=== PATIENT | female | born 1980 | race Caucasian/White ===

== ENCOUNTER 2017-03-07 23:30 | Emergency (ER) | payer BC ==
[2017-03-07 23:36] VITALS: BP 123/83; PULSE 78; TEMP 98.2; BMI 22.6
[2017-03-08] MEDS ORDERED: LIDOCAINE HCL 2% (20ML MULTI-DOSE VIAL) NR ONE (00:13)
--- NOTE | 2017-03-08 00:31 | PDOC ---
History of Present Illness - History of Present Illness Initial Comments: 03/08/17 00:32 Patient is a 36 year old female with significant medical hx of fibrocystic breast disease who is presenting to the ED with a head laceration s/p fall from last night. 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 The patient hit both sides of her head, sustaining a laceration to the right scalp and a bump to the left. She endorses significant blood loss from the wound. Patient denies any LOC, dizziness, nausea , or vomiting. Today the patient noticed that her laceration kept reopening up and decided to come to the ED for further evaluation. <Keyona Alvarez - Last Filed: 03/08/17 00:32> <Nissa Dunn - Last Filed: 03/08/17 01:26> - General Chief Complaint: Injury Stated Complaint: INJURY Time Seen by Provider: 03/08/17 00:02 Past History <Keyona Alvarez - Last Filed: 03/08/17 00:32> - Past Medical History Cardiac Disorders: No CVA: No CHF: No Dementia: No Diabetes: No GI Disorders: No Disorders: No HTN: No Hypercholesterolemia: No Liver Disease: No Seizures: No Thyroid Disease: No - Immunization History Immunization Up to Date: Yes - Psycho/Social/Smoking Cessation Hx Anxiety: No Suicidal Ideation: No Smoking Status: No Smoking History: Never smoked Have you smoked in the past 12 months: No Number of Cigarettes Smoked Daily: 0 Hx Alcohol Use: Yes (drinks approx. 1/2 bottle vodka/day) Drug/Substance Use Hx: No Substance Use Type: Alcohol Hx Substance Use Treatment: No <Nissa Dunn - Last Filed: 03/08/17 01:26> - Past Medical History Allergies/Adverse Reactions: Allergies Allergy/AdvReac Type Severity Reaction Status Date / Time No Known Drug Allergies Allergy Verified 03/07/17 23:36 Home Medications: Ambulatory Orders Acetaminophen [Tylenol] 650 mg PO Q4H #0 tablet 04/04/13 Review of Systems - Review of Systems Comments:: 03/08/17 00:33 CONSTITUTIONAL: Absent: fever, chills, diaphoresis, generalized weakness, malaise, loss of appetite HEENT: Present: bump to left scalp Absent: rhinorrhea, nasal congestion, throat pain, throat swelling, difficulty swallowing, mouth swelling, ear pain, eye pain, visual changes CARDIOVASCULAR: Absent: chest pain, syncope, palpitations, irregular heart rate, lightheadedness , peripheral edema RESPIRATORY: Absent: cough, shortness of breath, dyspnea with exertion, orthopnea, wheezing, stridor, hemoptysis GASTROINTESTINAL: Absent: abdominal pain, abdominal distension, nausea, vomiting, diarrhea, constipation, melena, hematochezia GENITOURINARY: Absent: dysuria, frequency, urgency, hesitancy, hematuria, flank pain, genital pain MUSCULOSKELETAL: Absent: myalgia, arthralgia, joint swelling SKIN: Present: right scalp laceration Absent: rash, itching, pallor HEMATOLOGIC/IMMUNOLOGIC: Absent: easy bleeding, easy bruising, lymphadenopathy, frequent infections ENDOCRINE: Absent: unexplained weight gain, unexplained weight loss, heat intolerance, cold intolerance NEUROLOGIC: Present: headache Absent: focal weakness or paresthesia, dizziness, unsteady gait, seizure, mental status changes, bladder or bowel incontinence. PSYCHIATRIC: Absent: anxiety, depression, suicidal or homicidal ideation, hallucinations <Keyona Alvarez - Last Filed: 03/08/17 00:32> *Physical Exam - Vital Signs Last Vital Signs Temp Pulse Resp BP Pulse Ox 98.2 F 78 18 123/83 99 03/07/17 23:33 03/07/17 23:33 03/07/17 23:33 03/07/17 23:33 03/07/17 23:33 - Physical Exam Comments: 03/08/17 00:34 GENERAL: Well developed, well nourished. Awake and alert. No acute distress. HEENT: Normocephalic. PERRLA, EOMI. No conjunctival pallor. Sclera are non-icteric. Moist mucous membranes. Oropharynx is clear. NECK: Supple. Full ROM. No JVD. Carotid pulses 2+ and symmetric, without bruits. No thyromegaly. No lymphadenopathy. CARDIOVASCULAR: Regular rate and rhythm. No murmurs, rubs, or gallops. Distal pulses are 2+ and symmetric. PULMONARY: No evidence of respiratory distress. Lungs clear to auscultation bilaterally. No wheezing, rales or rhonchi. ABDOMINAL: Soft. Non-tender. Non-distended. No rebound or guarding. No organomegaly. Normoactive bowel sounds. MUSCULOSKELETAL: Normal range of motion at all joints. No bony deformities or tenderness. No CVA tenderness. EXTREMITIES: No cyanosis. No clubbing. No edema. No calf tenderness. SKIN: Linear 3 cm laceration to the right parietal area which is slightly flapped, gaping open, and actively bleeding.Warm and dry. Normal capillary refill. No rashes. No jaundice. NEUROLOGICAL: Alert, awake, appropriate. Cranial nerves 2-12 intact. Normal speech. Gait is normal without ataxia. PSYCHIATRIC: Cooperative. Good eye contact. Appropriate mood and affect. <Keyona Alvarez - Last Filed: 03/08/17 00:32> - Vital Signs Last Vital Signs Temp Pulse Resp BP Pulse Ox 98.2 F 78 18 123/83 99 03/07/17 23:33 03/07/17 23:33 03/07/17 23:33 03/07/17 23:33 03/07/17 23:33 <Nissa Dunn - Last Filed: 03/08/17 01:26> Procedures - Laceration/Wound Repair Right Parietal Wound Length: 2.6 to 5.0 cm Wound Explored: no foreign body present Wound's Depth, Shape: flap Irrigated w/ Saline: Yes Betadine Prep: No Anesthesia: 2% Lidocaine Amount of Anesthetic (ccs): 6 Wound Debrided: minimal Wound Repaired With: Aung Number of Sutures: 2 <Nissa Dunn - Last Filed: 03/08/17 01:26> Medical Decision Making - Medical Decision Making 03/08/17 00:43 36 yo female was walking into her apt and tripped and fell hitting her head yesterday about 21 hours ago. Denies LOC, She was not drinking any alcohol at the time.It was a mechanical fall. She actually called an ambulance but when they came she did not want to go to a hospital. -she cleaned it off and went to bed -today SHE went to work -she kept noted some bleeding from the wound and came to have it evaluated -she denies severe headache,vomiting.,visual changes -she denies anticoagulants ,no plavix,no ASA,no NOACs the wound was anesthetized, wound debrided w saline, skin approximated with 2 aung pt given instructions to follow up with her PCP for staple removal in 1 week. iF SHE DEVELOPED ANY LETHARGY, HEADACHES -SHE WAS INSTRUCTED TO RETURN FOR IMAGING STUDIES 03/08/17 01:25 <Nissa Dunn - Last Filed: 03/08/17 01:26> *DC/Admit/Observation/Transfer - Attestations Scribe Attestion: 03/08/17 00:35 Documentation prepared by Keyona Alvarez, acting as director of medical review for Nissa Dunn MD. <Keyona Alvarez - Last Filed: 03/08/17 00:32> <Nissa Dunn - Last Filed: 03/08/17 01:26> Diagnosis at time of Disposition: Scalp laceration Qualifiers: Encounter type: initial encounter Qualified Code(s): S01.01XA - Laceration without foreign body of scalp, initial encounter - Discharge Dispostion Disposition: HOME Condition at time of disposition: Stable - Referrals Referrals: Chase Jc MD [Primary Care Provider] - - Patient Instructions Printed Discharge Instructions: DI for Closed Head Injury, DI for Laceration Repair of the Scalp Additional Instructions: PLEASE RETURN FOR ANY SEVERE HEADACHES ASSOCIATED WITH VOMITING HAVE TH4E AUNG REMOVED IN 1 WEEK
== END 2017-03-08 01:06 | disposition home or self-care (01) ==
LOC: JER 23:30
PROC: 0HQ0XZZ Repair Scalp Skin, External Approach (ICD-10-PCS; principal; 2017-03-07)
DX: S01.01XA Laceration without foreign body of scalp, initial encounter (principal); S00.03XA Contusion of scalp, initial encounter; W10.8XXA Fall (on) (from) other stairs and steps, initial encounter; Y93.89 Activity, other specified; Y92.018 Other place in single-family (private) house as the place of occurrence of the external cause
CPT/HCPCS: 99281-25

== ENCOUNTER 2017-03-14 22:59 | Emergency (ER) | payer BC ==
[2017-03-14 23:54] VITALS: BP 135/82; PULSE 82; TEMP 97.8; BMI 23.6
== END 2017-03-15 01:50 | disposition left against medical advice (07) ==
LOC: JER 22:59
DX: Z53.21 Procedure and treatment not carried out due to patient leaving prior to being seen by health care provider (principal)
CPT/HCPCS: 99281-25

== ENCOUNTER 2017-03-15 09:18 | Emergency (ER) | payer BC ==
[2017-03-15 09:26] VITALS: BP 138/89; PULSE 98; TEMP 98.4; BMI 23.6
--- NOTE | 2017-03-15 09:50 | PDOC ---
Suture Removal/Wound Check HPI - History of Present Illness Chief Complaint: Suture/Staple Removal(Here) Stated Complaint: STAPLE/SUTURE REMOVAL, PAIN Time Seen by Provider: 03/15/17 09:47 History Source: Yes: Patient Exam Limitations: Yes: No Limitations Treated at: [facility] ED Date of Last ED visit: 03/14/17 ([facility], 03/08/17 2 amrita to rt. parietal scalp) - Previous ED Treatment Type of procedure performed on last visit: Yes: Laceration Repair Past History - Past Medical History Allergies/Adverse Reactions: Allergies No Known Drug Allergies Allergy (Verified 03/15/17 09:26) Home Medications: Ambulatory Orders Acetaminophen [Tylenol] 650 mg PO Q4H #0 tablet 04/04/13 - Reproductive History LMP: 04/23/13 - Immunization History Immunizations Up to Date: Yes Tetanus Status: Less than 5 years - Social History Smoking History: No Smoking Status: Never smoked Number of Ciarettes Per Day: 0
--- NOTE | 2017-03-15 10:36 | PDOC ---
History of Present Illness - General Chief Complaint: Suture/Staple Removal(Here) Stated Complaint: STAPLE/SUTURE REMOVAL, PAIN Time Seen by Provider: 03/15/17 09:47 History Source: Patient Exam Limitations: No Limitations - History of Present Illness Initial Comments: 03/15/17 10:44 My chief complaint: Here for staple removal right side of head scalp area and complaining of pain to left rib area History of present illness: Patient is a 36 Y/O male here today complaining of right anterior lower rib pain that is currently a 3 out of 10 with breathing or movement. Patient reports that she slipped and hit the bathtub 4 days ago. Patient denies any other injuries. Patient is also here for staple removal of right parietal scalp had them inserted on 03/07/2017 due to a fall on her steps. Patient reports that she came here last night 03/14/2017 but it was very busy so she left prior to being seen. Patient denies any difficulty breathing. Patient denies any fever or any redness of the wound on right parietal area. 03/15/17 10:47 Occurred: reports: other Severity: reports: mild (LEFT ANTERIOR DISTAL RIB PAIN ) Pain Location: reports: head (RT. PARIETAL [address] FROM 03/07/17), other (LEFT ANTERIOR PROXIMAL ) Method of Injury: Yes: fall Modifying Factors: improves with: None Loss of Consciousness: no loss of consciousness Associated Symptoms (Fall): denies symptoms Past History - Past Medical History Allergies/Adverse Reactions: Allergies Allergy/AdvReac Type Severity Reaction Status Date / Time No Known Drug Allergies Allergy Verified 03/15/17 09:26 Home Medications: Ambulatory Orders NK [No Known Home Medication] 03/15/17 Cardiac Disorders: No CVA: No CHF: No Dementia: No Diabetes: No GI Disorders: No Disorders: No HTN: No Hypercholesterolemia: No Liver Disease: No Seizures: No Thyroid Disease: No Other medical history: PATIENT DENIES MEDICAL HX - Immunization History Immunization Up to Date: Yes - Psycho/Social/Smoking Cessation Hx Anxiety: No Suicidal Ideation: No Smoking Status: No Smoking History: Never smoked Have you smoked in the past 12 months: No Number of Cigarettes Smoked Daily: 0 Hx Alcohol Use: Yes Drug/Substance Use Hx: No Substance Use Type: Alcohol Hx Substance Use Treatment: No Review of Systems - Review of Systems Able to Perform ROS?: Yes Constitutional: No: Symptoms Reported HEENTM: No: Symptoms Reported Respiratory: No: Symptoms reported Cardiac (ROS): No: Symptoms Reported ABD/GI: No: Symptoms Reported Musculoskeletal: Yes: Joint Pain (LEFT ANTERIOR RIB PAIN ) Integumentary: Yes: Other (2 AMRITA RT. PARIETAL SCALP) Neurological: No: Symptoms reported *Physical Exam - Vital Signs Last Vital Signs Temp Pulse Resp BP Pulse Ox 98.4 F 98 H 18 138/89 98 03/15/17 09:23 03/15/17 09:23 03/15/17 09:23 03/15/17 09:23 03/15/17 09:23 - Physical Exam General Appearance: Yes: Appropriately Dressed Respiratory/Chest: positive: Lungs Clear, Normal Breath Sounds. negative: Chest Tender, Respiratory Distress Cardiovascular: positive: Regular Rhythm, Regular Rate, S1, S2 Musculoskeletal: positive: Normal Inspection, Other (TENDERNESS LEFT PROXIMAL RIB AREA, NO AREA OF ERYTHEMA OR EDEMA). negative: CVA Tenderness, CVA Tenderness (R), CVA Tenderness (L) Integumentary: positive: Other (RT. PARIETAL SCALP [address] WITH SCABBING NO TENDERNESS) Neurologic: positive: Alert, Normal Response, Responsive Procedures - Consent Consent obtained: From Patient - Additional Procedures Progress: 03/15/17 10:46 2 amrita noted to right parietal area with scabbing cleanse with Betadine and normal saline 0.9% to armita removed without complications wound edges well approximated scab formation noted, no surrounding erythema minimal tenderness 03/15/17 10:46 Medical Decision Making - Medical Decision Making 03/15/17 10:49 Patient is a 36 Y/O male here today complaining of right anterior lower rib pain that is currently a 3 out of 10 with breathing or movement. Patient reports that she slipped and hit the bathtub 4 days ago. Patient denies any other injuries. Patient is also here for staple removal of right parietal scalp had them inserted on 03/07/2017 due to a fall on her steps. Patient reports that she came here last night 03/14/2017 but it was very busy so she left prior to being seen. Patient denies any difficulty breathing. Patient denies any fever or any redness of the wound on right parietal area. STAPLE REMOVAL RT. PARIETAL SCALP FALL 4 DAYS AGO LEFT ANTERIOR RIB PAIN CONTUSION PLAN: URINE HCG NEGATIVE XRAY LEFT RIB SERIES NO RIB FRACTURE NOTED PER DR. LEDEZMA DOES NOT WANT ANYTHING FOR TERRY N 03/15/17 11:34 03/15/17 11:36 *DC/Admit/Observation/Transfer Diagnosis at time of Disposition: Removal of staple Contusion of rib on left side Qualifiers: Encounter type: initial encounter Qualified Code(s): S20.212A - Contusion of left front wall of thorax, initial encounter - Discharge Dispostion Disposition: HOME Condition at time of disposition: Stable - Patient Instructions Additional Instructions: You may wash her hair however do not scrub area where you had amrita until scab formation has fALLS off Today your rib x-ray was negative for any fracture avoid any strenuous activities or exercise You may take ibuprofen or acetaminophen as needed as directed by recruiting consultant for any pain Follow-up with your primary care provider within the next couple of days Return to emergency room with any worsening pain or any new symptoms develop Patient voiced understanding of discharge instructions and all questions were answered
== END 2017-03-15 11:41 | disposition home or self-care (01) ==
LOC: JERFT 09:18
DX: S20.212A Contusion of left front wall of thorax, initial encounter (principal); W22.8XXA Striking against or struck by other objects, initial encounter; Y93.E1 Activity, personal bathing and showering; Y92.031 Bathroom in apartment as the place of occurrence of the external cause; Y99.8 Other external cause status; Z48.02 Encounter for removal of sutures
CPT/HCPCS: 71101-TC; 84703; 99281-25

== ENCOUNTER 2017-08-09 23:01 | Emergency (ER) | payer BC ==
[2017-08-09 23:22] VITALS: BP 142/82; PULSE 77; TEMP 98; BMI 25.0
--- NOTE | 2017-08-09 23:34 | PDOC ---
History of Present Illness - General Chief Complaint: Injury Stated Complaint: FALL/INJURY Time Seen by Provider: 08/09/17 23:24 History Source: Patient Exam Limitations: No Limitations - History of Present Illness Initial Comments: 08/10/17 01:42 37-year-old female with no medical history presents to the emergency department , crying in tears and insisting that I document that when she fell yesterday, it is under a full investigation by the "proper authorities". Patient states she slipped and fell onto her right hip and wrist. Patient denies any head injuries, loss of consciousness, headache, dizziness, lightheadedness, facial pains, neck pains, back pains, chest pain, shortness of breath, abdominal pains , flank pains, urinary symptoms, Jerome numbness or tingling sensation. Patient states she has chronic neck/back/legs/wrist pains for many years from being a runner when she was in school. 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 The sized, headache region to her right mid lateral thigh, patient states symptoms today has been chronic. Occurred: reports: other (x2d ago) Pain Location: reports: lower extremity (right lat mid thigh), upper extremity ( right wrist) Past History - Past Medical History Allergies/Adverse Reactions: Allergies Allergy/AdvReac Type Severity Reaction Status Date / Time No Known Drug Allergies Allergy Verified 08/09/17 23:22 Home Medications: Ambulatory Orders NK [No Known Home Medication] 03/15/17 Cardiac Disorders: No CVA: No COPD: No CHF: No Dementia: No Diabetes: No GI Disorders: No Disorders: No HTN: No Hypercholesterolemia: No Liver Disease: No Seizures: No Thyroid Disease: No - Immunization History Immunization Up to Date: Yes - Suicide/Smoking/Psychosocial Hx Smoking Status: No Smoking History: Never smoked Have you smoked in the past 12 months: No Number of Cigarettes Smoked Daily: 0 Hx Alcohol Use: Yes Drug/Substance Use Hx: No Substance Use Type: Alcohol Hx Substance Use Treatment: No Review of Systems - Review of Systems Able to Perform ROS?: Yes Comments:: 08/10/17 01:38 CONSTITUTIONAL: Absent: fever, chills, diaphoresis, generalized weakness, malaise, loss of appetite HEENT: Absent: rhinorrhea, nasal congestion, throat pain, throat swelling, difficulty swallowing, mouth swelling, ear pain, eye pain, visual Changes CARDIOVASCULAR: Absent: chest pain, loss of consciousness, palpitations, irregular heart rate, peripheral edema RESPIRATORY: Absent: cough, shortness of breath, dyspnea with exertion, orthopnea, wheezing, stridor, hemoptysis GASTROINTESTINAL: Absent: abdominal pain, abdominal distension, nausea, vomiting, diarrhea, constipation, melena, hematochezia GENITOURINARY: Absent: dysuria, frequency, urgency, hesitancy, hematuria, flank pain, genital pain MUSCULOSKELETAL: +right wrist/lat mid thigh pain/+ecchymosis to lat right mid thigh Absent: myalgia, arthralgia, joint swelling SKIN: Absent: rash, itching, pallor HEMATOLOGIC/IMMUNOLOGIC: Absent: easy bleeding, easy bruising, lymphadenopathy, frequent infections ENDOCRINE: Absent: unexplained weight gain, unexplained weight loss, heat intolerance, cold intolerance NEUROLOGIC: Absent: headache, focal weakness or paresthesias, dizziness, unsteady gait, seizure, mental status changes, bladder or bowel incontinence Is the patient limited Romansh proficient: No *Physical Exam - Vital Signs Last Vital Signs Temp Pulse Resp BP Pulse Ox 98 F 77 18 142/82 99 08/09/17 23:19 08/09/17 23:19 08/09/17 23:19 08/09/17 23:19 08/09/17 23:19 - Physical Exam Comments: 08/10/17 01:38 GENERAL: Well developed, well nourished. Awake and alert. Upset and kept crying for me to document "the investigation" No acute distress. HEENT: Normocephalic, atraumatic. PERRLA, EOMI. No conjunctival pallor. Sclera are non- icteric. Moist mucous membranes. Oropharynx is clear. NECK: Supple. Full ROM. No JVD. Carotid pulses 2+ and symmetric, without bruits. No thyromegaly. No lymphadenopathy. CARDIOVASCULAR: Regular rate and rhythm. No murmurs, rubs, or gallops. Distal pulses are 2+ and symmetric. PULMONARY: No evidence of respiratory distress. Lungs clear to auscultation bilaterally. No wheezing, rales or rhonchi. ABDOMINAL: Soft. Non-tender. Non-distended. No rebound or guarding. No organomegaly. Normoactive bowel sounds. MUSCULOSKELETAL +right lat mid thigh/~8cm circular ecchymosis Normal range of motion at all joints. No bony deformities or tenderness. No CVA tenderness. EXTREMITIES: No cyanosis. No clubbing. No edema. No calf tenderness. SKIN: Warm and dry. Normal capillary refill. No rashes. No jaundice. NEUROLOGICAL: Alert, awake, appropriate. Cranial nerves 2-12 intact. No deficits to light touch and temperature in face, upper extremities and lower extremities. No motor deficits in the in face, upper extremities and lower extremities. Normoreflexic in the upper and lower extremities. Normal speech. Toes are down- going bilaterally. Gait is normal without ataxia. PSYCHIATRIC: Uncooperative Pt was able to jump up and down the step at the foot of the exam table. Pt was able to hop on each foot w/o difficulties Pt kept stretching and flexing her legs backwards and stretching throughout her exam Pt kept outstretching her b/l upper extremities w/o difficulties Pt able to bend forward and touch her toes w/o pain Progress Note - Progress Note Progress Note: 2326hrs: Went into room to examine patient. Pt kept screaming and yelling about wanting me to document that she made a police report that she fell x2d ago. I explained to the patient that I am here to examine her medical complaints but she insisted that I write that the authorities and her PMD is aware but won't tell me what she is talking about. Pt was very vague with why she is here. Pt was reluctant but later stated that she fell and ADAMANTLY insisted on xray of her right hip/right wrist. 2355hrs: Went back into examine room Fast track 1 with Nuria Jacques R.N., pt refused exam. Pt states she does not want the exam and "I'm done". Pt storms out of the exam room. Pt says she's leaving and refuses to be seen. 0011hrs: Pt returns to the ER fast track and says she's not leaving. 0035hrs: Walked into exam room, pt refuses to be seen and walks out. Returns in 2 minutes and says she refuses to leave. 0100hrs: Pt kept saying she doesn't want an exam but wants paper to prove that she was examined. Pt was explained she was not examined because she refused to be examined. Pt stormed out the ER and says she's leaving and will call [place] Police on the staff. 0113hrs: Pt invited back into the ER to be seen. Pt walks into Fast track room 1 0114hrs: It took the patient approximately 2 hours to eventually have Ruth cooperate for a subjective, review of systems and physical exam. During her exam, patient would cry without tears for approximately 10 seconds then sits up immediately and talks with a loud and boisterous demeanor than returns to crying again for approximately 10 seconds. This goes on for approximately 10 minutes. *DC/Admit/Observation/Transfer Diagnosis at time of Disposition: Wrist pain Qualifiers: Laterality: right Qualified Code(s): M25.531 - Pain in right wrist Contusion of hip, right Qualifiers: Encounter type: initial encounter Qualified Code(s): S70.01XA - Contusion of right hip, initial encounter Contusion of leg, right Qualifiers: Encounter type: initial encounter Qualified Code(s): S80.11XA - Contusion of right lower leg, initial encounter - Discharge Dispostion Disposition: HOME Condition at time of disposition: Stable Admit: No - Referrals Referrals: Chase Jc MD [Staff Physician] - Rex Yap MD [Staff Physician] - - Patient Instructions Printed Discharge Instructions: DI for Contusion, DI for Wrist Pain Additional Instructions: Ice; 20 mins on alternating with 20 mins off for 48 hours while awake. Rest Elevate Follow up with your orthopedic surgeon or the one listed on the discharge form. Return to the ER for severe/persistent/worsening symptoms, extremity numbness/ tingling sensation. - Post Discharge Activity
== END 2017-08-10 01:48 | disposition home or self-care (01) ==
LOC: JERFT 23:01
DX: S70.01XA Contusion of right hip, initial encounter (principal); S80.11XA Contusion of right lower leg, initial encounter; W18.39XA Other fall on same level, initial encounter; Y93.89 Activity, other specified; Y92.9 Unspecified place or not applicable; Y99.0 Civilian activity done for income or pay
CPT/HCPCS: 73110-TC-RT; 73502-TC-RT; 99281-25

== ENCOUNTER 2021-10-16 15:51 | Emergency (ER) | payer BC ==
[2021-10-16 16:36] VITALS: BP 131/83; TEMP 98.1; BMI 24.1
[2021-10-16 17:26] VITALS: PULSE 82
== END 2021-10-16 17:37 | disposition home or self-care (01) ==
LOC: JERFT 15:51
PROC: 2W3TX1Z Immobilization of Left Foot using Splint (ICD-10-PCS; principal; 2021-10-16)
DX: S82.832A Other fracture of upper and lower end of left fibula, initial encounter for closed fracture (principal); W01.0XXA Fall on same level from slipping, tripping and stumbling without subsequent striking against object, initial encounter
CPT/HCPCS: 29515; 99282-25

== ENCOUNTER 2022-07-19 12:32 | Inpatient (IN) | payer BC ==
[2022-07-19 12:48] VITALS: BMI 22.4
[2022-07-19] MEDS ORDERED: ONDANSETRON 4 MG/2 ML VIAL IVPUSH ONE (13:19)
[2022-07-19] MEDS ORDERED: SODIUM CHLORIDE 1,000 ML IV STA (13:19)
[2022-07-19] MEDS ORDERED: LORazepam 2 MG/ML SDV VIAL IVPUSH ONE ×2 (13:21→13:52)
[2022-07-19] MEDS ORDERED: chlordiazePOXIDE HCL 25 MG CAPSULE PO ONE (13:58)
[2022-07-19] MEDS ORDERED: chlordiazePOXIDE HCL 25 MG CAPSULE ONE (14:26)
[2022-07-19] MEDS ORDERED: ONDANSETRON 4 MG/2 ML VIAL ONE (15:04)
[2022-07-19 16:35] LABS: BASO % 0.6 % (0-2.0); EOS % 1.6 % (0-4.5); HEMATOCRIT 22.1 % (32.4-45.2); HEMOGLOBIN 7.1 GM/dL (10.7-15.3); LYMPH % 11.6 % (8-40); MCH 28.9 pg (25.7-33.7); MCHC 32.2 g/dl (32.0-36.0); MEAN CELL VOLUME 89.5 fl (80-96); MEAN PLT VOLUME 7.3 fl (7.5-11.1); MONO % 7.1 % (3.8-10.2); NEUT % 79.1 % (42.8-82.8); PLATELET COUNT 210 10^3/uL (134-434); RBC 2.47 M/mm3 (3.60-5.2); RDW 23.3 % (11.6-15.6); WHITE BLOOD COUNT 15.3 K/mm3 (4.0-10.0)
[2022-07-19 16:54] LABS: CHLORIDE 109 mmol/L (98-107); SODIUM 140 mmol/L (136-145)
[2022-07-19 16:56] LABS: ALBUMIN 1.8 g/dl (3.4-5.0); CALCIUM 7.5 mg/dL (8.5-10.1); CO2 20 mmol/L (21-32); GLUCOSE,RANDOM 85 mg/dL (74-106); LIPASE 144 U/L (73-393)
[2022-07-19 17:00] LABS: BILIRUBIN,DIRECT 9.3 mg/dL (0.0-0.2); CREATININE 0.4 mg/dL (0.55-1.3); SGOT/AST 142 U/L (15-37); SGPT/ALT 14 U/L (13-61)
[2022-07-19 17:02] LABS: ALK PHOS 480 U/L (45-117); BILIRUBIN,TOTAL 10.2 mg/dL (0.2-1); TOT PROT 7.6 g/dl (6.4-8.2)
[2022-07-19 17:03] LABS: LDH 202 U/L (84-246)
[2022-07-19 17:05] LABS: URINE APPEARANCE CLEAR; URINE BILIRUBIN 2+ (NEGATIVE); URINE COLOR DK YELLOW; URINE GLUCOSE (UA) NEGATIVE (NEGATIVE); URINE KETONE NEGATIVE (NEGATIVE); URINE LEUK ESTERASE NEGATIVE (NEGATIVE); URINE NITRITE NEGATIVE (NEGATIVE); URINE PROTEIN NEGATIVE (NEGATIVE); URINE UROBILINOGEN 0.2 mg/dL (0.2-1.0)
[2022-07-19 17:07] LABS: HCG,QUALITATIVE URINE Negative
[2022-07-19 17:27] LABS: ANION GAP 11 MMOL/L (8-16)
[2022-07-19] MEDS ORDERED: POTASSIUM CHLORIDE TABS 20 MEQ TABLET.ER (FP) PO ONE (17:34)
[2022-07-19] MEDS ORDERED: POTASSIUM CHLORIDE ORAL LIQUID 20 MEQ/15 ML ONE (17:37)
[2022-07-19] MEDS ORDERED: KCL 10 MEQ IVPB 10 MEQ/100 ML INFUS.BAG IVPB SCH (17:45)
[2022-07-19 17:49] LABS: ANISOCYTOSIS 1+; MACROCYTOSIS 0; PLATELET ESTIMATE NORMAL; TARGET CELLS 1+
[2022-07-19] MEDS ORDERED: KCL 10 MEQ IVPB 10 MEQ/100 ML INFUS.BAG IVPB ONE (18:01)
[2022-07-19] MEDS ORDERED: PIPERACILLIN/TAZOB 4.5 GM 4.5 GM in DEXTROSE 5%-WATER 100 ML IVPB ONE (18:56)
[2022-07-19] MEDS ORDERED: PIPERACILLIN/TAZOB 3.375 GM 3.375 GM/50 ML BAG IVPB ONE (19:05)
[2022-07-19] MEDS ORDERED: PIPERACILLIN/TAZOB 4.5 GM 4.5 GM/100 ML BAG IVPB ONE (19:35)
[2022-07-19 19:41] LABS: INR 2.51 (0.83-1.09); PROTHROMBIN TIME (PATIENT) 29.1 SEC (9.7-13.0)
[2022-07-19 19:55] LABS: ALBUMIN 1.7 g/dl (3.4-5.0); BLOOD UREA NITROGEN 3.1 mg/dL (7-18); CALCIUM 7.2 mg/dL (8.5-10.1)
[2022-07-19 19:58] LABS: CREATININE 0.4 mg/dL (0.55-1.3)
[2022-07-19 20:00] LABS: BILIRUBIN,TOTAL 9.6 mg/dL (0.2-1); TOT PROT 7.1 g/dl (6.4-8.2)
[2022-07-19 20:02] LABS: MAGNESIUM 1.4 mg/dL (1.8-2.4)
[2022-07-19] MEDS ORDERED: FOLIC ACID INJECTION - 1 MG, THIAMINE HCL 100 MG, MULTIVIT INJECTION ADULT 10 ML in SOD... IVPB ONE (22:42)
[2022-07-19] MEDS ORDERED: SODIUM CHLORIDE 1,000 ML IV SCH (22:45)
[2022-07-19] MEDS ORDERED: MAGNESIUM SULF 50% (8.12 MEQ/2 ML-1 GM VIAL) IVPB ONE (23:00)
[2022-07-20] MEDS ORDERED: LORazepam 1 MG TABLET PO PRN (00:07)
[2022-07-20 00:08] VITALS: RESP 20
[2022-07-20] MEDS ORDERED: PANTOPRAZOLE SODIUM 40 MG VIAL IVPUSH ONE (00:17)
[2022-07-20] MEDS ORDERED: PIPERACILLIN/TAZOB 3.375 GM 3.375 GM in DEXTROSE 5%-WATER - 50 ML IVPB SCH (02:00)
[2022-07-20] MEDS: PIPERACILLIN/TAZOB 3.375 GM 3.375 GM in DEXTROSE 5%-WATER - 50 ML IVPB SCH ×2 (02:55→10:36)
[2022-07-20] MEDS ORDERED: LORazepam 2 MG TABLET PO SCH (05:00)
[2022-07-20] MEDS ORDERED: LORazepam 1 MG TABLET PO SCH ×2 (05:56→06:30)
[2022-07-20] MEDS ORDERED: PHYTONADIONE 10 MG/1 ML AMP SQ ONE (09:00)
[2022-07-20] MEDS ORDERED: OCTREOTIDE ACETATE 200 MCG, OCTREOTIDE ACETATE 1,000 MCG in DEXTROSE 5%-WATER - 496 ML IVPB SCH (09:00)
[2022-07-20] MEDS ORDERED: THIAMINE HCL 200 MG/2 ML VIAL IVPB SCH (10:00)
[2022-07-20] MEDS ORDERED: PANTOPRAZOLE SODIUM 40 MG VIAL IVPUSH SCH (10:00)
[2022-07-20 11:08] VITALS: BP 104/42; PULSE 114; TEMP 98.1
[2022-07-20 11:18] LABS: INR 2.4 (0.83-1.09); PROTHROMBIN TIME (PATIENT) 27.8 SEC (9.7-13.0)
[2022-07-20 11:23] LABS: CHLORIDE 111 mmol/L (98-107); SODIUM 141 mmol/L (136-145)
[2022-07-20 11:41] LABS: ALBUMIN 1.4 g/dl (3.4-5.0); ANION GAP 9 MMOL/L (8-16); CO2 21 mmol/L (21-32); GLUCOSE,RANDOM 64 mg/dL (74-106); MAGNESIUM 1.9 mg/dL (1.8-2.4)
[2022-07-20 11:43] LABS: CREATININE 0.3 mg/dL (0.55-1.3); PHOSPHOROUS 2.1 mg/dL (2.5-4.9); SGOT/AST 128 U/L (15-37); SGPT/ALT 11 U/L (13-61)
[2022-07-20 11:44] LABS: BILIRUBIN,TOTAL 7.7 mg/dL (0.2-1); TOT PROT 6.2 g/dl (6.4-8.2)
[2022-07-20 11:46] LABS: ALK PHOS 398 U/L (45-117); BLOOD UREA NITROGEN 1.9 mg/dL (7-18); CALCIUM 6.8 mg/dL (8.5-10.1)
[2022-07-20 12:51] LABS: HEMATOCRIT 17.7 % (32.4-45.2); MCH 28.8 pg (25.7-33.7); MCHC 32.8 g/dl (32.0-36.0); MEAN CELL VOLUME 87.9 fl (80-96); MEAN PLT VOLUME 7.3 fl (7.5-11.1); PLATELET COUNT 148 10^3/uL (134-434); RBC 2.02 M/mm3 (3.60-5.2); RDW 23.3 % (11.6-15.6); WHITE BLOOD COUNT 8.1 K/mm3 (4.0-10.0)
[2022-07-20 13:08] LABS: HEMOGLOBIN 5.8 GM/dL (10.7-15.3)
[2022-07-21] MEDS ORDERED: LORazepam 1 MG TABLET PO SCH (05:00)
[2022-07-21] MEDS ORDERED: PANTOPRAZOLE 40 MG TABLET PO SCH (10:00)
[2022-07-22] MEDS ORDERED: LORazepam 0.5 MG TABLET PO PRN
[2022-07-22] MEDS ORDERED: LORazepam 0.5 MG TABLET PO SCH (05:00)
[2022-07-23] MEDS ORDERED: LORazepam 0.5 MG TABLET PO ONE (05:00)
== END 2022-07-20 11:21 | disposition short-term general hospital (02) | DRG 279 ==
LOC: JER 12:32 → JERBED 19:54 → J6S 23:25
PROVIDERS: ADMIT Internal Medicine; ATTEND Internal Medicine
DX: K72.00 Acute and subacute hepatic failure without coma (principal); D68.9 Coagulation defect, unspecified; K92.0 Hematemesis; D62 Acute posthemorrhagic anemia; E83.42 Hypomagnesemia; K81.0 Acute cholecystitis; E80.6 Other disorders of bilirubin metabolism; E87.6 Hypokalemia; F10.239 Alcohol dependence with withdrawal, unspecified; K70.10 Alcoholic hepatitis without ascites; K76.82 Hepatic encephalopathy; K76.6 Portal hypertension; K70.31 Alcoholic cirrhosis of liver with ascites
CPT/HCPCS: 36415; 71046-TC-FY; 74177-TC; 76705-TC; 80053; 80307; 81003; 82140; 82248; 82272; 83615; 83690; 83735; 84100; 84703; 85025; 85027; 85610; 86922; 87086; 87186; 93005; 93010; 99285-25; C9803-CS; Q9967; U0003; U0005